=== PATIENT | male | born 1990 | race American Indian/Alaskan Native ===

== ENCOUNTER 2017-03-26 20:31 | Emergency (ER) | payer SELFPAY ==
--- NOTE | 2017-03-26 22:29 | Ultrasound Report ---
FINAL REPORT PROCEDURE: US TESTICULAR DOPPLER COMP TECHNIQUE: Real-time foster-scale and color flow Doppler sonography in multiple planes of the scrotum, testicles, and epididymes was performed. Velocity spectral waveform analysis Doppler imaging of the arterial inflow and venous outflow of the testicles was performed with image documentation. CPT 45955 and [address]40 HISTORY: LEFT TESTICULAR PAIN COMPARISON: No prior studies are available for comparison. FINDINGS: RIGHT TESTICLE: Size: 3.8 cm . Appearance: Normal size and echotexture . Arterial blood flow: Normal spectral waveforms, flow velocities and color flow images.. Venous blood flow: Normal spectral waveforms and color flow images. Right epididymis: Normal size and echotexture. Right epididymal head cyst measures 3 x 4 millimeters Hydrocele: None . LEFT TESTICLE Size: 3.5 cm . Appearance: Normal size and echotexture . Arterial blood flow: Normal spectral waveforms, flow velocities and color flow images.. Venous blood flow: Normal spectral waveforms and color flow images. Leftepididymis: Normal size and echotexture. Left epididymal head cyst 15 x 17 millimeters Hydrocele: None . IMPRESSION: No testicular torsion orchitis or epididymitis Dominant left epididymal head cyst
[2017-03-26 22:34] LABS: Bilirubin,Urine NEG (Negative); Blood,Urine NEG (Negative); Ketones,Urine NEG (Negative); Leukocyte Esterase,Urine TR (Negative); Mucus,Urine FEW /HPF; Nitrite,Urine NEG (Negative); Urobilinogen,Urine < 2.0 mg/dL (<2.0)
--- NOTE | 2017-03-27 00:21 | Emergency Department Report ---
ED Male HPI - General Chief complaint: Urogenital-Male Stated complaint: TESTICLE PAIN Time Seen by Provider: 03/27/17 00:14 Source: patient, RN notes reviewed Mode of arrival: Ambulatory Limitations: No Limitations - History of Present Illness Initial comments: This is a 26-year-old male. He is previously unknown to me. He does not have a local primary care doctor. He denies a history of abdominal surgeries. The patient presents to the ER with a history of intermittent left-sided testicular pain. This is been going on for 4 days. It has no exacerbating or relieving factors. No irritative or obstructive urinary symptoms. No chest pain or shortness of breath. No abdominal pain. No hematemesis or bright red blood per rectum. The patient had a benign physical examination in the emergency department. There is no testicular tenderness on physical examination, he had normal testicular lie, and normal cremasteric reflex bilaterally. The urinalysis was not consistent with urinary tract infection, and a testicular ultrasound demonstrated no evidence of torsion, orchitis, or epididymitis. The patient was instructed to follow-up with an outpatient urologist. MD Complaint: testicle pain -: Gradual Location: left testicle Radiation: none Severity: mild Consistency: intermittent Improves with: none Worsens with: none denies other symptoms - Related Data Sexually active: Yes Previous Rx's Medication Instructions Recorded Last Taken Type Ibuprofen [Motrin] 600 mg PO Q8H PRN #30 tablet 03/27/17 Unknown Rx Allergies Allergy/AdvReac Type Severity Reaction Status Date / Time No Known Allergies Allergy Verified 03/26/17 20:40 ED Review of Systems ROS: Stated complaint: TESTICLE PAIN Other details as noted in HPI Constitutional: denies: fever Eyes: denies: eye discharge ENT: denies: epistaxis Respiratory: denies: cough Cardiovascular: denies: chest pain Gastrointestinal: denies: abdominal pain Genitourinary: testicular pain Musculoskeletal: denies: back pain Skin: denies: lesions Neurological: denies: headache ED Past Medical Hx - Past Medical History Previous Medical History?: Yes Additional medical history: LEFT TESTICULAR SWELLING 2016 - Surgical History Past Surgical History?: No - Social History Smoking Status: Current Every Day Smoker Substance Use Type: Marijuana - Medications Home Medications: Home Medications Medication Instructions Recorded Confirmed Last Taken Type Ibuprofen [Motrin] 600 mg PO Q8H PRN #30 tablet 03/27/17 Unknown Rx ED Physical Exam - General Limitations: No Limitations General appearance: alert, in no apparent distress - Head Head exam: Present: atraumatic, normocephalic - Eye Eye exam: Present: normal appearance, EOMI. Absent: nystagmus - ENT ENT exam: Present: normal exam, normal orophraynx, mucous membranes moist, normal external ear exam - Neck Neck exam: Present: normal inspection, full ROM. Absent: tenderness, meningismus - Respiratory Respiratory exam: Present: normal lung sounds bilaterally. Absent: respiratory distress, wheezes, rales, rhonchi, stridor, chest wall tenderness, accessory muscle use, decreased breath sounds, prolonged expiratory - Cardiovascular Cardiovascular Exam: Present: regular rate, normal rhythm, normal heart sounds. Absent: bradycardia, tachycardia, irregular rhythm, systolic murmur, diastolic murmur, rubs, gallop - GI/Abdominal GI/Abdominal exam: Present: soft, normal bowel sounds. Absent: distended, tenderness, guarding, rebound, rigid, pulsatile mass - Rectal Rectal exam: Present: deferred - exam: Present: normal inspection, other (escorted by nurse Maria Esther Escobar) . Absent: testicular tenderness External exam: Present: normal external exam, other (there is no testicular tenderness. There is normal cremasteric reflex bilaterally. There is normal testicular lie bilaterally, there is no testicular tenderness.) - Extremities Exam Extremities exam: Present: normal inspection, full ROM, normal capillary refill. Absent: tenderness, pedal edema, joint swelling, calf tenderness - Back Exam Back exam: Present: normal inspection, full ROM. Absent: tenderness, CVA tenderness (R), CVA tenderness (L), muscle spasm, paraspinal tenderness, vertebral tenderness - Neurological Exam Neurological exam: Present: alert, oriented X3, normal gait, other (Extraocular movements intact. Tongue midline. No facial droop. Facial sensation intact to light touch in the V1, V2, V3 distribution bilaterally. 5 and 5 strength in 4 extremities.. Sensation is intact to light touch in 4 extremities.). Absent : motor sensory deficit - Psychiatric Psychiatric exam: Present: normal affect, normal mood - Skin Skin exam: Present: warm, dry, intact, normal color. Absent: rash ED Course Vital Signs 03/26/17 03/27/17 20:40 00:15 Temperature 98.5 F Pulse Rate 97 H 91 H Respiratory 18 20 Rate Blood Pressure 131/95 Blood Pressure 128/88 [Left] O2 Sat by Pulse 100 99 Oximetry ED Medical Decision Making - Lab Data Vital Signs 03/26/17 20:40 Temperature 98.5 F Pulse Rate 97 H Respiratory 18 Rate Blood Pressure 131/95 O2 Sat by Pulse 100 Oximetry Lab Results 03/26/17 Range/Units Unknown Urine Color Yellow (Yellow) Urine Turbidity Clear (Clear) Urine pH 8.0 H (5.0-7.0) Ur Specific [place] 1.026 (1.003-1.030) Urine Protein 100 mg/dl (Negative) mg/dL Urine Glucose (UA) Neg (Negative) mg/dL Urine Ketones Neg (Negative) mg/dL Urine Blood Neg (Negative) Urine Nitrite Neg (Negative) Urine Bilirubin Neg (Negative) Urine Urobilinogen < 2.0 (<2.0) mg/dL Ur Leukocyte Esterase Tr (Negative) Urine WBC (Auto) 1.0 (0.0-6.0) /HPF Urine RBC (Auto) 1.0 (0.0-6.0) /HPF Hyaline Casts 1 /LPF Urine Mucus Few /HPF - Radiology Data Radiology results: report reviewed, image reviewed Ultrasound demonstrates no evidence of testicular torsion, epididymitis, orchitis. Critical care attestation.: If time is entered above; I have spent that time in minutes in the direct care of this critically ill patient, excluding procedure time. ED Disposition Clinical Impression: Pain in left testicle Disposition: DISCHARGED TO HOME OR SELFCARE Is pt being admited?: No Does the pt Need Aspirin: No Condition: Stable Instructions: Testicle Pain (ED) Additional Instructions: Take the pain medication as directed. Follow up with the listed urology specialist within the next 10-14 days. Return to the ER right away with new pain, worsened pain, migration of pain, fevers, chills, chest pain, shortness of breath, intractable nausea or vomiting, inability to tolerate liquid feeds, confusion, worsening testicular pain. Prescriptions: Ibuprofen [Motrin] 600 mg PO Q8H PRN #30 tablet PRN Reason: Pain Referrals: KELLY CAMEJO MD [Staff Physician] - 3-5 Days [facility] [Provider Group] - 3-5 Days
[2017-03-27] MEDS ORDERED: MOTRIN PO ONE (00:26)
[2017-03-27 00:34] VITALS: BP 128/88
== END 2017-03-27 00:30 | disposition home or self-care (01) ==
LOC: ED 20:31
DX: N50.812 Left testicular pain (principal); F17.200 Nicotine dependence, unspecified, uncomplicated; F12.10 Cannabis abuse, uncomplicated
CPT/HCPCS: 81001; 93975; 99284